=== PATIENT | male | born 1980 | race Caucasian/White ===

== ENCOUNTER 2022-07-23 07:34 | Day surgery (SDC) | payer OTHER, SELFPAY ==
[2022-07-10 11:53] VITALS: BMI 21.1
--- NOTE | 2022-07-22 13:29 | P.CONAN_ITS ---
Documented by User: Renea Moseley NP 07/22/22 13:32 HPI - Anesthesia Eval Consult details Narrative: 42yo M for Hernia Repair Umbilical, Insert HD Cath Tunneled IR Hx of renal transplant ESRD on peritoneal dialysis PMFSH Past Medical History Medical History AV fistula Dialysis patient Glomerulonephritis History of blood transfusion HTN (hypertension) Hx of cardiac murmur IgA nephropathy Peritoneal dialysis catheter in place PUD (peptic ulcer disease) Surgical History Surgical History Hx of foot surgery Hx of kidney transplant Hx of right inguinal hernia repair Social History Social History Are you a primary infant childcare provider to a significant other at home: No Do you presently have visiting nurse or other home services: No Patient Tobacco Use Status: Never used Tobacco Have you been hit, kicked, punched, or otherwise hurt by someone within the past year? If so, by whom?: No Are you DNR?: No Advance Directives: No Advance Directives Information Provided: Yes Advance Directives on File: No Meds Allergies Allergy/AdvReac Type Severity Reaction Status Date / Time No Known Allergies Allergy Verified 07/10/22 11:48 Home Medications Medication Instructions Recorded Confirmed Last Taken Type albuterol sulfate 1.25 mg/3 mL 2.5 mg inhalation Q4-6H PRN 06/09/22 07/10/22 Unknown History solution for nebulization Shortness Of Breath Or Wheezing albuterol sulfate 90 mcg/actuation 2 puff inhalation Q6H PRN 06/09/22 07/10/22 Unknown History aerosol inhaler (ProAir HFA) Shortness Of Breath Or Wheezing calcitriol 0.25 mcg capsule 0.25 mcg PO DAILY 06/09/22 Unknown History (Rocaltrol) cinacalcet 30 mg tablet (Sensipar) 30 mg PO DAILY 06/09/22 07/10/22 Unknown History ergocalciferol (vitamin D2) 1,250 1,250 mcg PO QWEEK 06/09/22 07/10/22 Unknown History mcg (50,000 unit) capsule (Drisdol) furosemide 80 mg tablet (Lasix) 40 mg PO DAILY 06/09/22 07/10/22 Unknown History losartan 50 mg tablet (Cozaar) 100 mg PO DAILY 06/09/22 07/10/22 07/23/22 History metoprolol succinate 100 mg 100 mg PO DAILY 06/09/22 07/10/22 07/23/22 History tablet,extended release 24 hr multivitamin (Daily-Mary tablet) 1 tab PO DAILY 06/09/22 Unknown History nifedipine 90 mg tablet,extended 90 mg PO DAILY 06/09/22 07/10/22 Unknown History release 24 hr (Procardia XL) sevelamer carbonate 800 mg tablet 2,400 mg PO TID 06/09/22 07/10/22 Unknown History (Renvela) sodium bicarbonate 650 mg tablet 650 mg PO BID 06/09/22 Unknown History tacrolimus 1 mg capsule, 3 mg PO Q12H 06/09/22 07/10/22 Unknown History immediate-release (Prograf) vitamin B complex and vitamin C 1 cap PO DAILY 06/09/22 Unknown History no.20-folic acid 1 mg capsule (Armstrong Caps) Exam Exam Date and Time: July 22, 2022 1329 Height,Weight and Vital Signs: Height 5 ft 9 in Weight 64.864 kg Assessment and Plan Assessment Anesthesia Assessment: Chart Reviewed Documented by User: Dawn Lewis MD 07/23/22 08:48 [facility] Past Medical History Medical History AV fistula Dialysis patient Glomerulonephritis History of blood transfusion HTN (hypertension) Hx of cardiac murmur IgA nephropathy Peritoneal dialysis catheter in place PUD (peptic ulcer disease) Functional capacity: independent ambulation Family History Family history of problems with anesthesia: No Surgical History Surgical History Hx of foot surgery Hx of kidney transplant Hx of right inguinal hernia repair History of Problems with Anesthesia: No Social History Social History Are you a primary infant childcare provider to a significant other at home: No Do you presently have visiting nurse or other home services: No Patient Tobacco Use Status: Never used Tobacco Have you been hit, kicked, punched, or otherwise hurt by someone within the past year? If so, by whom?: No Are you DNR?: No Advance Directives: No Advance Directives Information Provided: Yes Advance Directives on File: No Meds Allergies Allergy/AdvReac Type Severity Reaction Status Date / Time No Known Allergies Allergy Verified 07/10/22 11:48 Home Medications Medication Instructions Recorded Confirmed Last Taken Type albuterol sulfate 1.25 mg/3 mL 2.5 mg inhalation Q4-6H PRN 06/09/22 07/10/22 Unknown History solution for nebulization Shortness Of Breath Or Wheezing albuterol sulfate 90 mcg/actuation 2 puff inhalation Q6H PRN 06/09/22 07/10/22 Unknown History aerosol inhaler (ProAir HFA) Shortness Of Breath Or Wheezing calcitriol 0.25 mcg capsule 0.25 mcg PO DAILY 06/09/22 Unknown History (Rocaltrol) cinacalcet 30 mg tablet (Sensipar) 30 mg PO DAILY 06/09/22 07/10/22 Unknown History ergocalciferol (vitamin D2) 1,250 1,250 mcg PO QWEEK 06/09/22 07/10/22 Unknown History mcg (50,000 unit) capsule (Drisdol) furosemide 80 mg tablet (Lasix) 40 mg PO DAILY 06/09/22 07/10/22 Unknown History losartan 50 mg tablet (Cozaar) 100 mg PO DAILY 06/09/22 07/10/22 07/23/22 History metoprolol succinate 100 mg 100 mg PO DAILY 06/09/22 07/10/22 07/23/22 History tablet,extended release 24 hr multivitamin (Daily-Mary tablet) 1 tab PO DAILY 06/09/22 Unknown History nifedipine 90 mg tablet,extended 90 mg PO DAILY 06/09/22 07/10/22 Unknown History release 24 hr (Procardia XL) sevelamer carbonate 800 mg tablet 2,400 mg PO TID 06/09/22 07/10/22 Unknown History (Renvela) sodium bicarbonate 650 mg tablet 650 mg PO BID 06/09/22 Unknown History tacrolimus 1 mg capsule, 3 mg PO Q12H 06/09/22 07/10/22 Unknown History immediate-release (Prograf) vitamin B complex and vitamin C 1 cap PO DAILY 06/09/22 Unknown History no.20-folic acid 1 mg capsule (Zechariah Caps) Assessment and Plan Final Anesthetic Review Family History of Problems with Anesthesia: No History of Problems with Anesthesia: No
[2022-07-23] VITALS (12 sets, daily range): BP systolic 125–150; BP diastolic 80–96; PULSE 57–75; RESP 16–18; TEMP 36.2–36.8; O2SAT 96–100; BMI 20.9
[2022-07-23 08:16] LABS: Anion Gap 20 (12-20); Carbon Dioxide 25 mmol/L (22-29); Chloride 104 mmol/L (96-108); Potassium 4.3 mmol/L (3.3-5.1); Sodium 145 mmol/L (135-145)
[2022-07-23] MEDS: 0.9 % Sodium Chloride 1,000 ML 50 ML IVCONT (08:21)
--- NOTE | 2022-07-23 12:25 | P.OP_ITS ---
Operative Note Operative Note Date of Service: 07/23/22 Narrative: Preop Diagnosis: Reducible, recurrent umbilical hernia Postop Diagnosis: same Operation: Primary repair of umbilical hernia Surgeon: Igor Deutsch Anesthesia: MAC, local EBL: 25 cc Procedure: The patient was placed on the OR table in a supine position, with both arms abducted on padded arm boards. Lower extremity compression devices were placed. After successful induction of MAC anesthesia, the patient was prepped and draped in a sterile fashion. The anesthesiologist administered the pre- operative antibiotic. Local anesthesia was used before making the skin incision. Using a #15 scalpel, a 3 cm curvilinear, infraumbilical incision was made. The Bovie electrocautery was used to dissect through the subcutaneous tissue. The hernia sac was skeletonized and isolated from the subcutaneous tissue and umbilicus. The sac was dissected out down to healthy fascia. The sac was opened with a scissors. It was empty. The sac was removed and sent to Pathology. The fascia was reapproximated with interrupted #1 Maxon [id number] stitches. The umbilicus was sutured to the fascia with 3-0 Vicryl stitches. The incision was closed with interrupted 3-0 Vicryl subdermal stitches and a 4-0 Monocryl subcuticular stitch. Surgical glue was applied. The PD catheter was re-dressed. All instrument, sponge and needle counts were correct at the end of the case.
[2022-07-23] MEDS: ondansetron HCL 4 MG/2 ML VIAL IVPUSH (12:33)
[2022-07-23] MEDS: Acetaminophen 1,000 MG/100 ML PIGGYBACK 400 MG IV (13:03)
[2022-07-23] MEDS: fentaNYL citrate/PF 100 MCG/2 ML VIAL 25 MCG IVPUSH (13:09)
--- NOTE | 2022-07-23 14:46 | HO.POSTANES ---
Post Anesthesia Evaluation Post Anesthesia Evaluation Vital Signs: Vital Signs Temp Pulse Resp BP Pulse Ox O2 Del Method O2 Flow Rate 07/23/22 14:11 97.5 F 62 18 134/83 98 Room Air 07/23/22 13:56 60 18 134/88 99 Room Air 07/23/22 13:41 60 18 136/91 H 100 Room Air 07/23/22 13:26 57 18 140/92 H 100 Nasal Cannula 2 07/23/22 13:11 69 16 150/95 H 99 Nasal Cannula 2 07/23/22 13:09 17 07/23/22 12:56 66 16 141/93 H 100 Nasal Cannula 2 07/23/22 12:41 70 16 139/89 99 Nasal Cannula 2 07/23/22 12:36 70 16 136/91 H 99 Nasal Cannula 07/23/22 12:31 70 16 131/91 H 99 Nasal Cannula 2 07/23/22 12:25 98.3 F 75 16 125/80 96 Room Air 07/23/22 08:03 97.2 F 72 18 145/96 H 96 Room Air Anesthesia: General LMA Mental Status: Awake Pain Control: Satisfactory Nausea/Vomiting: None Hydration: Adequate Anesthesia-Related Issues: No Anes. Related Issues
== END 2022-07-23 15:00 | disposition home or self-care (01) ==
PROVIDERS: Nurse Practitioner; PCP Internal Medicine; Visit Provider Transplant Surgery
PROC: (CPT 49585; principal; 2022-07-23 09:40)
PROC: (CPT 49585; 2022-07-23 09:40)
DX: K42.9 Umbilical hernia without obstruction or gangrene (principal); N18.6 End stage renal disease; Z99.2 Dependence on renal dialysis; I12.0 Hypertensive chronic kidney disease with stage 5 chronic kidney disease or end stage renal disease; Z94.0 Kidney transplant status; K26.9 Duodenal ulcer, unspecified as acute or chronic, without hemorrhage or perforation; Z79.899 Other long term (current) drug therapy; Z87.11 Personal history of peptic ulcer disease
CPT/HCPCS: 49585; 36415; 80051; 88302; J0131; J0690; J2405; J2550; J2795; J3010